=== PATIENT | female | born 1965 ===

== ENCOUNTER 2020-02-19 13:47 | Inpatient (IN) | payer MEDICAID, OTHER ==
[~2020-02-19] VITALS: Ht 162.6 cm; Wt 72.6 kg
[2020-02-19] MEDS: SODIUM CHLORIDE 0.9% 1,000 ML IV SCH (00:01)
[2020-02-19] MEDS ORDERED: INSULIN LANTUS (GLARGINE) 1 /0.01ml (100units/ml) SC ONE (14:15)
[2020-02-19] MEDS ORDERED: InsuLIN R (HUMAN) 100 UNITS in SODIUM CHL 0.9% 99 ML IV SCH (14:15)
[2020-02-19] MEDS ORDERED: DEXTROSE (50%) 50ML SYRG IV PRN (14:15)
[2020-02-19] MEDS ORDERED: SODIUM CHLORIDE 0.9% 1,000 ML IV ONE (14:15)
[2020-02-19] MEDS: ACCU-CHEK COMFORT CURVE STRIP VI SCH ×6 (15:22→23:01)
[2020-02-19 15:25] LABS: Basophils # (auto) 0 10 ^3/uL (0-0.2); Basophils % (auto) 0.1 % (0.0-2.0); Eosinophils # (auto) 0 10 ^3/uL (0-0.8); Nucleated Red Blood Cells % 0.1 %; Red Cell Distribution Width 16.4 % (11.8-14.3)
[2020-02-19 15:26] LABS: Hematocrit 46.5 % (36.0-46.0); Hemoglobin 14.4 g/dL (12.2-16.2); Lymphocytes # (auto) 0.6 10 ^3/uL (0.4-5.4); Lymphocytes % (auto) 3.8 % (10.0-50.0); Mean Corpuscular Hemoglobin 28.1 pg (28.0-32.0); Mean Corpuscular Hgb Conc. 30.9 g/dL (32.0-36.0); Mean Corpuscular Volume 90.8 fL (80.0-100.0); Monocytes # (auto) 0.7 10 ^3/uL (0-1.3); Monocytes % (auto) 4.9 % (0.0-12.0); Neutrophils # (auto) 13.4 10 ^3/uL (1.6-8.6); Neutrophils % (auto) 91.2 % (37.0-80.0); Red Blood Cells 5.12 10^6/uL (4.0-5.20); White Blood Cell 14.7 10^3/uL (4.4-10.8)
[2020-02-19 15:55] LABS: Chloride 93 mmol/L (98-107); Sodium 132 mmol/L (136-145)
[2020-02-19 15:59] LABS: Lactic Acid w/Reflex 2.7 mmol/L (0.4-2.0)
[2020-02-19 16:05] LABS: Alanine Aminotransferase 27 U/L (13-56); Albumin 3.1 g/dL (3.4-5.0); Alkaline Phosphatase 121 U/L (45-117); Anion Gap 29 (5-15); Aspartate Aminotransferase 24 U/L (15-37); BUN/Creatinine Ratio 26.2; Bilirubin, Total 0.6 mg/dL (0.2-1.0); Blood Urea Nitrogen 53 mg/dL (7-18); Calcium 9.6 mg/dL (8.5-10.1); Carbon Dioxide 10 mmol/L (21-32); GFR African American 33 mL/min; GFR Non-African American 27 mL/min; Total Protein 9.2 g/dL (6.4-8.2)
[2020-02-19 16:10] LABS: Glucose 667 mg/dL (74-106); Potassium 5.6 mmol/L (3.5-5.1)
[2020-02-19] MEDS ORDERED: AZITHROMYCIN 500MG/ 250ML 250 ML IV ONE (16:30)
[2020-02-19] MEDS ORDERED: NITROGLYCERIN 0.4 MG SL TAB SL PRN (17:00)
[2020-02-19] MEDS ORDERED: SODIUM CHLORIDE 0.9% 1,000 ML IV SCH (17:00)
[2020-02-19] MEDS ORDERED: SODIUM CHLORIDE 0.9% 2,000 ML IV ONE (17:00)
[2020-02-19] MEDS ORDERED: SODIUM BICARBONATE 8.4 % INJ 50ML VIAL IV ONE (17:00)
[2020-02-19] MEDS ORDERED: MORPHINE SULFATE INJECTION 2 MG/ML SYRG IV PRN (17:00)
[2020-02-19] MEDS ORDERED: levoFLOXacin 500MG 100 ML IV ONE (17:00)
[2020-02-19 18:54] LABS: Urine Bacteria FEW /hpf (None Seen); Urine Blood TRACE /uL (Negative); Urine Hyaline Cast FEW /lpf (0 - 2); Urine Mucus FEW (None Seen); Urine Specific Gravity 1.023 (1.001-1.035); Urine WBC 11 /hpf (0 - 5)
[2020-02-19 22:06] LABS: Albumin 2.4 g/dL (3.4-5.0); Calcium 7.9 mg/dL (8.5-10.1); Potassium 4.6 mmol/L (3.5-5.1)
[2020-02-19 22:10] LABS: BUN/Creatinine Ratio 32.9; Bilirubin, Total 0.6 mg/dL (0.2-1.0); Total Protein 7.4 g/dL (6.4-8.2)
[2020-02-19] MEDS: D5W/SOD CHLO 0.9% 1,000 ML IV SCH (23:01)
[2020-02-20] MEDS: ACCU-CHEK COMFORT CURVE STRIP VI SCH ×14 (00:01→19:45)
[2020-02-20 01:50] LABS: INR 1.11 (0.9-1.15); Partial Thromboplastin Time 25.1 sec (23.0-31.2); Potassium 4.5 mmol/L (3.5-5.1)
[2020-02-20] MEDS: D5W/SOD CHLO 0.9% 1,000 ML IV SCH ×2 (02:06→13:26)
[2020-02-20 02:07] LABS: BUN/Creatinine Ratio 29.9; Calcium 8.3 mg/dL (8.5-10.1)
[2020-02-20] MEDS: ALBUTEROL SULF 2.5 MG/0.5ML(0.5%) NEB SOLN NEB SCH ×5 (06:00→22:00)
[2020-02-20] MEDS: InsuLIN R (HUMAN) 100 UNITS in SODIUM CHL 0.9% 99 ML IV SCH ×8 (06:30→18:51)
[2020-02-20 07:04] LABS: Hemoglobin 12.2 g/dL (12.2-16.2); Red Cell Distribution Width 15.1 % (11.8-14.3)
[2020-02-20 07:06] LABS: Hematocrit 36.6 % (36.0-46.0); Mean Corpuscular Hemoglobin 27.4 pg (28.0-32.0); Mean Corpuscular Hgb Conc. 33.2 g/dL (32.0-36.0); Mean Corpuscular Volume 82.3 fL (80.0-100.0); Red Blood Cells 4.45 10^6/uL (4.0-5.20); White Blood Cell 7.8 10^3/uL (4.4-10.8)
[2020-02-20 07:15] LABS: Basophils % (manual) 0 (0.0-2.0); Blast Cells 0; Eosinophils % (manual) 0 (0-7); Metamyelocytes % 0; Promyelocytes % 0; Reactive Lymphocytes 0
[2020-02-20 07:48] LABS: Potassium 4.2 mmol/L (3.5-5.1)
[2020-02-20 07:54] LABS: BUN/Creatinine Ratio 25.5; Calcium 8.5 mg/dL (8.5-10.1)
[2020-02-20] MEDS: SODIUM CHLORIDE 0.9% 1,000 ML IV SCH (09:15)
[2020-02-20] MEDS ORDERED: INSULIN LANTUS (GLARGINE) 1 /0.01ml (100units/ml) SC SCH (10:00)
[2020-02-20] MEDS: levoFLOXacin 250MG 50 ML IV SCH (10:00)
[2020-02-20] MEDS ORDERED: POTASSIUM CHL 20MEQ/100ML 200 ML IV PRN (10:45)
[2020-02-20 11:45] LABS: Band Neutrophils % (manual) 36; Lymphocytes % (manual) 3 (10.0-50.0); Monocytes % (manual) 3 (0-12); Myelocytes % 8
[2020-02-20 12:22] LABS: BUN/Creatinine Ratio 25.6; Calcium 8.5 mg/dL (8.5-10.1); Potassium 4.4 mmol/L (3.5-5.1)
[2020-02-20] MEDS ORDERED: ASPI-498 PO (13:08)
[2020-02-20] MEDS ORDERED: QUET100T46 PO (13:08)
[2020-02-20] MEDS ORDERED: INSU100I51 SC (13:08)
[2020-02-20] MEDS ORDERED: EMPA1TAB3 PO (13:08)
[2020-02-20] MEDS ORDERED: METF-372 PO (13:08)
[2020-02-20] MEDS ORDERED: LISI-716 PO (13:08)
[2020-02-20] MEDS ORDERED: ALPR1TAB7 PO (13:08)
[2020-02-20] MEDS ORDERED: INSUINJ37 SC (13:08)
[2020-02-20] MEDS ORDERED: AMPH1TAB78 PO (13:08)
[2020-02-20] MEDS ORDERED: FENO160T8 PO (13:08)
[2020-02-20] MEDS ORDERED: ATEN-60 PO (13:08)
[2020-02-20] MEDS ORDERED: PAR20T PO (13:08)
[2020-02-20] MEDS: SOD CHL 0.45% 1,000 ML IV SCH ×2 (13:30→23:30)
[2020-02-20] MEDS ORDERED: INSULIN LANTUS (GLARGINE) 1 /0.01ml (100units/ml) SC ONE (13:30)
[2020-02-20] MEDS ORDERED: ACCU-CHEK COMFORT CURVE STRIP VI SCH (18:00)
[2020-02-20] MEDS: InsuLIN REG 1unit/0.01ml Soln (100units/ml) SC SCH (19:45)
[2020-02-21] MEDS: InsuLIN REG 1unit/0.01ml Soln (100units/ml) SC SCH ×6 (04:16→20:32)
[2020-02-21] MEDS: ACCU-CHEK COMFORT CURVE STRIP VI SCH ×6 (04:18→20:31)
[2020-02-21] MEDS: ALBUTEROL SULF 2.5 MG/0.5ML(0.5%) NEB SOLN NEB SCH ×5 (06:00→22:00)
[2020-02-21] MEDS: levoFLOXacin 250MG 50 ML IV SCH (09:06)
[2020-02-21] MEDS: SOD CHL 0.45% 1,000 ML IV SCH ×2 (09:06→19:30)
[2020-02-21 09:24] LABS: Basophils # (auto) 0 10 ^3/uL (0-0.2); Basophils % (auto) 0.5 % (0.0-2.0); Eosinophils # (auto) 0 10 ^3/uL (0-0.8); Hemoglobin 12.3 g/dL (12.2-16.2); Lymphocytes # (auto) 0.4 10 ^3/uL (0.4-5.4); Mean Corpuscular Hgb Conc. 33.9 g/dL (32.0-36.0); Monocytes # (auto) 0.4 10 ^3/uL (0-1.3); Neutrophils # (auto) 6.2 10 ^3/uL (1.6-8.6)
[2020-02-21 09:25] LABS: Hematocrit 36.2 % (36.0-46.0); Lymphocytes % (auto) 6.1 % (10.0-50.0); Mean Corpuscular Volume 82.4 fL (80.0-100.0); Monocytes % (auto) 5.9 % (0.0-12.0); Neutrophils % (auto) 87.5 % (37.0-80.0); Nucleated Red Blood Cells % 0.2 %; Red Cell Distribution Width 15.5 % (11.8-14.3); White Blood Cell 7.1 10^3/uL (4.4-10.8)
[2020-02-21 09:38] LABS: BUN/Creatinine Ratio 23.5; Potassium 3.8 mmol/L (3.5-5.1)
[2020-02-21] MEDS: INSULIN LANTUS (GLARGINE) 1 /0.01ml (100units/ml) SC SCH (11:30)
[2020-02-21] MEDS ORDERED: LORazepam 2MG/ML-1ML VIAL IV ONE (14:15)
[2020-02-21] MEDS: FREE WATER PO SCH ×3 (14:40→22:00)
[2020-02-21] MEDS ORDERED: IOHEXOL 350 MG/ML 100ML IJ ONE (16:25)
[2020-02-21 17:01] LABS: BUN/Creatinine Ratio 24.4; Calcium 8.8 mg/dL (8.5-10.1); Potassium 3.7 mmol/L (3.5-5.1)
[2020-02-22] MEDS: ACCU-CHEK COMFORT CURVE STRIP VI SCH ×4 (01:00→13:18)
[2020-02-22] MEDS: InsuLIN REG 1unit/0.01ml Soln (100units/ml) SC SCH ×4 (01:31→11:49)
[2020-02-22] MEDS ORDERED: InsuLIN R (HUMAN) 100 UNITS in SODIUM CHL 0.9% 99 ML IV SCH (02:00)
[2020-02-22] MEDS: FREE WATER PO SCH ×3 (02:00→10:54)
[2020-02-22] MEDS: ALBUTEROL SULF 2.5 MG/0.5ML(0.5%) NEB SOLN NEB SCH (06:00)
[2020-02-22 07:16] LABS: Calcium 8.7 mg/dL (8.5-10.1); Potassium 3.6 mmol/L (3.5-5.1)
[2020-02-22 07:20] LABS: BUN/Creatinine Ratio 25.3
[2020-02-22] MEDS: SOD CHL 0.45% 1,000 ML IV SCH (09:04)
[2020-02-22] MEDS: levoFLOXacin 250MG 50 ML IV SCH (10:10)
[2020-02-22] MEDS: INSULIN LANTUS (GLARGINE) 1 /0.01ml (100units/ml) SC SCH (10:36)
[2020-02-22] MEDS ORDERED: INSU100I44 SC (13:15)
[2020-02-22] MEDS ORDERED: LEVO500T31 PO (13:15)
[2020-02-22] MEDS ORDERED: INSUINJ37 SC (13:15)
[2020-02-22 14:30] VITALS: BP 140/91
[2020-02-22 16:00] VITALS: BP 141/91
== END 2020-02-22 16:47 | disposition home health service (06) | DRG 52 ==
LOC: EDBD 13:47 → ER 13:47 → OVERFLOW 13:48 → UNDODISIN 02-22 18:46 → OVERFLOW 02-22 18:46
PROVIDERS: ADMIT Internal Medicine; ATTEND Internal Medicine
DX: G92 Toxic encephalopathy (principal); J96.01 Acute respiratory failure with hypoxia; N17.0 Acute kidney failure with tubular necrosis; E11.10 Type 2 diabetes mellitus with ketoacidosis without coma; J18.9 Pneumonia, unspecified organism; E87.0 Hyperosmolality and hypernatremia; E87.5 Hyperkalemia; E86.1 Hypovolemia; N39.0 Urinary tract infection, site not specified; E86.0 Dehydration; F31.9 Bipolar disorder, unspecified; I10 Essential (primary) hypertension; J32.3 Chronic sphenoidal sinusitis; F90.9 Attention-deficit hyperactivity disorder, unspecified type; Z20.822 Contact with and (suspected) exposure to COVID-19; Z82.49 Family history of ischemic heart disease and other diseases of the circulatory system; Z91.19 Patient's noncompliance with other medical treatment and regimen; Z83.3 Family history of diabetes mellitus
CPT/HCPCS: 36415; 36600; 51702; 70450; 70551; 71045; 71275; 80048; 80053; 81001; 82010; 82140; 82607; 82728; 82805; 82962; 83036; 83605; 84443; 84484; 85007; 85025; 85027; 85379; 85610; 85730; 86141; 87040; 87426; 93005; 93970; 94640; 96361; 96365; 96367; 96375; G0378; J1815; J1956